=== PATIENT | male | born 1955 | race Native Hawaiian/Other Pacific Islander ===

== ENCOUNTER 2019-01-30 12:12 | Emergency (ER) | payer OTHER ==
[~2019-01-30] VITALS: Ht 175.3 cm; Wt 104.3 kg
[2019-01-30 13:41] LABS: PLATELET COUNT 200 K/uL (142-355)
[2019-01-30 13:48] LABS: POTASSIUM 3.7 mmol/L (3.6-5.2)
[2019-01-30 16:02] VITALS: BP 111/83; TEMP 97.9
== END 2019-01-30 16:02 ==
LOC: ED 12:12
PROVIDERS: Family Medicine
DX: E11.65 Type 2 diabetes mellitus with hyperglycemia (principal); B37.49 Other urogenital candidiasis
CPT/HCPCS: 36415; 80053; 81000; 85027; 96360; 96375; 99284; J1815